=== PATIENT | male | born 1950 | race Caucasian/White ===

== ENCOUNTER 2019-08-19 18:44 | Emergency (ER) | payer MEDICARE ==
[2019-08-19] MEDS ORDERED: Adacel (T-DAP) 0.5 ML SYRINGE ONE (18:48)
[2019-08-19 19:02] LABS: Hemoglobin 15.6 g/dL (14.0-18.0); Mean Corpuscular HGB CONC 35.3 g/dL (32.0-36.0); Mean Corpuscular Hemoglobin 34.2 pg (27.0-31.0); Mean Corpuscular Volume 96.7 fL (78.0-98.0); Mean Platelet Volume 6.2 fL (7.4-10.4); Platelet Count 326 thou/uL (130-400); RBC Distribution Width 12.5 % (11.5-14.5); Red Blood Cell (RBC) Count 4.55 mill/uL (4.70-6.10); White Blood Cell (WBC) Count 23.6 thou/uL (4.8-10.8)
--- NOTE | 2019-08-19 19:17 | CT ---
CT BRAIN WITHOUT CONTRAST: HISTORY: Limited trauma. Loss of consciousness FINDINGS: No evidence of acute infarct, hemorrhage, midline shift or abnormal extra-axial fluid collections is seen. The ventricular size is appropriate and the basilar cisterns are patent. The bony calvarium is intact. The visualized paranasal sinuses and mastoid air cells are well aerated. There is a right posterior parietal scalp hematoma. IMPRESSION: No CT evidence of acute intracranial process. Discussed over the telephone with ER physician Dr. Bird at 7:14 PM
--- NOTE | 2019-08-19 19:18 | CT ---
CT CERVICAL SPINE WITH CORONAL AND SAGITTAL REFORMATIONS AND NO IV CONTRAST: HISTORY: Level 2 trauma, neck pain FINDINGS: Multilevel degenerative changes are present. No fracture, subluxation or facet malalignment is identified. No prevertebral soft tissue swelling is apparent. IMPRESSION: No CT evidence for fracture or traumatic subluxation. Discussed over the telephone with ER physician Dr. Bird at 7:14 PM
[2019-08-19 19:23] LABS: ALT (SGPT) 34 U/L (8-55); AST (SGOT) 32 U/L (5-34); Albumin 4.3 g/dL (3.4-4.8); Alcohol 170 mg/dL (Less than 10); Alkaline Phosphatase 74 U/L (40-110); Anion Gap 17 mmol/L (10-20); BUN (Urea Nitrogen) 7 mg/dL (8.4-25.7); Bilirubin, Total 0.3 mg/dL (0.2-1.2); Calc. Creatinine Clearance 0 mL/min (70-130); Calcium 8.7 mg/dL (7.8-10.44); Carbon Dioxide 20 mmol/L (23-31); Chloride 101 mmol/L (98-107); Estimated GFR-MDRD Greater than 90; Globulin 2.5 g/dL (2.4-3.5); Glucose 94 mg/dL (80-115); Potassium 3.6 mmol/L (3.5-5.1); Protein, Total 6.8 g/dL (5.8-8.1); Sodium 134 mmol/L (136-145)
[2019-08-19 19:25] LABS: Band 18 % (5-11); Eosinophils 4 % (0-10); Lymphocytes 8 % (21-51); MDiff Complete? YES; Monocytes 4 % (0-10); Neutrophil 60 % (42-75); Platelet Morphology Comment Appears Adequate; Polychromasia SLIGHT = 2-3 cells (100X) (0-2/hpf); Reactive Lymphocytes 6 % (0-10)
[2019-08-19] MEDS ORDERED: Lidocaine 1% (PF) 30 ML VIAL ONE (19:30)
== END 2019-08-19 20:08 | disposition home or self-care (01) ==
LOC: ERS 18:44
DX: S01.01XA Laceration without foreign body of scalp, initial encounter (principal); F10.129 Alcohol abuse with intoxication, unspecified; Z79.899 Other long term (current) drug therapy; V86.59XA Driver of other special all-terrain or other off-road motor vehicle injured in nontraffic accident, initial encounter
CPT/HCPCS: 12001; 12014; 36415; 70450; 72125; 80053; 80307; 85025; 90471; 90715; 96365; G0390; J0690; J2001